=== PATIENT | female | born 1970 | race Caucasian/White ===

== ENCOUNTER → 2017-06-15 | Outpatient (CLI) | payer BC ==
--- NOTE | 2017-06-15 11:57 | WWHP ---
[facility] - HISTORY AND PHYSICAL DATE OF DICTATION: 06/15/2017 CHIEF COMPLAINT: The patient is here for her routine gynecologic exam and mammogram. HPI: This is a 47-year-old, G2, P2 with an LMP of 05/19/2017. The patient is without gynecologic complaints. Her is status post vasectomy. She states her periods are regular every 28 days. PAST MEDICAL HISTORY: Chronic hypertension. MEDICATIONS: Lisinopril 10 mg daily. ALLERGIES: PENICILLIN. PAST SURGICAL HISTORY: Unremarkable. 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 SOCIAL HISTORY: She denies tobacco and drug use and has about 12 alcohol containing drinks per week. She has been since 1995 and works at [email or web address]. FAMILY HISTORY: Unchanged from the 2015 H and P. REVIEW OF SYSTEMS: She has lost 36 pounds over the last year and this has been with diet and exercise. She denies respiratory, cardiac or GI problems. PHYSICAL EXAM: Blood pressure 145/84, height 5 feet 2 inches, weight 148 pounds. BMI 27. Temperature 98.5, pulse 58, this is a well-developed, well-nourished, white female, who is alert and oriented x3, in no acute distress. HEENT: Within normal limits. NECK: Supple without mass or thyromegaly. Chest and LUNGS: Clear to auscultation. HEART: Regular rate and rhythm. Breasts are without mass or discharge. Axillary exam is negative for adenopathy. Back negative for CVA tenderness. ABDOMEN: Soft, nontender, without palpable masses. Pelvic exam: Normal external genitalia. Cervix and vagina appear normal. There is no evidence of prolapse. The uterus is mid position nongravid size and nontender. There are no palpable adnexal masses or tenderness. Rectal exam is negative for mass or tenderness and is negative for occult blood. Extremities nontender. IMPRESSION: 47-year-old gynecologically healthy female whose is status post vasectomy. PLAN: 1. Pap smear was deferred since she had a normal 1 last year. 2. Self breast examination was discussed. 3. Mammogram will be done today. 4. Osteoporosis prevention was discussed. 5. She will return in 1 year. MMODL / IJN: [id number] / [facility]
--- NOTE | 2017-06-16 10:55 | MM ---
Reason for exam: screening (asymptomatic). Last mammogram was performed 1 year and 5 months ago. Physical Findings: A clinical breast exam by your physician is recommended on an annual basis and results should be correlated with mammographic findings. MG Screening Mammo w CAD Bilateral CC and MLO view(s) were taken. Prior study comparison: January 21, 2016, bilateral MG screening mammo w CAD. September 26, 2014, bilateral MG screening mammo w CAD. The breast tissue is heterogeneously dense. This may lower the sensitivity of mammography. Finding: There are typically benign round calcifications in the left breast. There is no discrete abnormality. ASSESSMENT: Benign, BI-RAD 2 RECOMMENDATION: Routine screening mammogram of both breasts in 1 year.
== END ==
LOC: WWCWWP 10:16
PROVIDERS: ATTEND Obstetrics & Gynecology
DX: Z12.31 Encounter for screening mammogram for malignant neoplasm of breast (principal)
CPT/HCPCS: 77067

== ENCOUNTER → 2019-05-02 | Outpatient (CLI) | payer BC ==
[2019-05-02 08:38] VITALS: BP 116/76; PULSE 62; RESP 18; TEMP 98.2
--- NOTE | 2019-05-02 09:08 | P.HPOB ---
History of Present Illness H&P Date: 05/02/19 Chief Complaint: The patient is here for her routine gynecologic exam and ma mmogram. This is a 49-year-old with an LMP of 04/11/2019. The patient is without gynecologic complaints. Menses are regular every month. Her is status post status post vasectomy. Review of Systems The patient has a net gain of 25 pound weight gain over the past 2 years. She has been actively trying to lose weight and using the keto diet and has lost 12 pounds over the past 2 months. She denies respiratory, cardiac, or GI problems. 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 History of Any Multi-Drug Resistant Organisms: None Reported Past Surgical History: No Surgical Hx Reported Past Psychological History: No Psychological Hx Reported Smoking Status: Never smoker Past Alcohol Use History: Daily (1 day) Past Drug Use History: None Reported Additional History: She has been since 1995 and works at [employer]. - Past Family History Mother Family Medical History: Diabetes Mellitus, Myocardial Infarction ([place]) Additional Family Medical History / Comment(s): Both grandmothers had diabetes. A maternal aunt had lung cancer. Medications and Allergies Home Medications Medication Instructions Recorded Confirmed Type Biotin 5,000 mcg PO DAILY 05/02/19 05/02/19 History Lisinopril [Zestril] 40 mg PO DAILY 05/02/19 05/02/19 History Allergies Allergy/AdvReac Type Severity Reaction Status Date / Time Penicillins AdvReac Rash/Hives Unverified 05/02/19 08:38 Exam Vital Signs Temp Pulse Resp BP Pulse Ox 05/02/19 08:34 98.2 F 62 18 116/76 100 Intake and Output 05/01/19 05/02/19 05/02/19 22:59 06:59 14:59 Other: Weight 78.471 kg Height 5 feet 2 inches, weight 173 pounds, BMI 31.6. This is a well-developed well-nourished white female who is alert and oriented times 3 in no acute distress. HEENT: Within normal limits. NECK: Supple without mass or thyromegaly. CHEST AND LUNGS: Clear to auscultation. HEART: Regular rate and rhythm. BREASTS: Are without mass or discharge. AXILLARY EXAM: Negative for adenopathy. BACK: Negative for CVA tenderness. ABDOMEN: Soft, nontender, without palpable masses. PELVIC EXAM: Normal external genitalia. Cervix and vagina appear normal. There is no unusual discharge. There is no evidence of prolapse. The uterus is midposition, nongravid size and nontender. There are no palpable adnexal masses or tenderness. RECTAL EXAM: negative for mass or tenderness and is negative for occult blood. EXTREMITIES: Nontender. IMPRESSION: 1. 49-year-old female whose is status post vasectomy with normal gynecologic exam. PLAN: 1. Pap smear was performed. 2. Self breast awareness was discussed with the patient. 3. Evening mammogram will be done today. 4. Osteoporosis prevention was discussed. I have stressed the importance of adequate calcium, vitamin D and regular exercise. Recommended amounts of calcium and vitamin D were also discussed. 5. She was advised to return in one year for her annual well woman exam.
--- NOTE | 2019-05-05 10:55 | MM ---
Reason for exam: screening (asymptomatic). Last mammogram was performed 1 year and 11 months ago. Physical Findings: A clinical breast exam by your physician is recommended on an annual basis and results should be correlated with mammographic findings. MG Screening Mammo w CAD Bilateral CC and MLO view(s) were taken. Prior study comparison: June 15, 2017, bilateral MG screening mammo w CAD. January 21, 2016, bilateral MG screening mammo w CAD. The breast tissue is heterogeneously dense. This may lower the sensitivity of mammography. No significant changes when compared with prior studies. ASSESSMENT: Benign, BI-RAD 2 RECOMMENDATION: Routine screening mammogram of both breasts in 1 year.
--- NOTE | 2019-05-09 14:02 | P.PN ---
Progress Note - Text Progress Note Date: 05/09/19 OUTPATIENT FOLLOW-UP NOTE TEST(S)/RESULTS: test results from 05/02/2019 include negative Pap smear and benign mammogram. METHOD OF NOTIFICATION: the patient was notified by phone. PATIENT COMMENTS: the patient is happy to hear these results. DIAGNOSIS: negative Pap smear and benign mammogram. DISCUSSION: PLAN: the patient is to return in one year for her annual well woman exam.
== END ==
LOC: WWCWWP 08:17
PROVIDERS: ATTEND Obstetrics & Gynecology
DX: Z12.31 Encounter for screening mammogram for malignant neoplasm of breast (principal)
CPT/HCPCS: 77067

== ENCOUNTER → 2020-08-21 | Outpatient (CLI) | payer BC ==
[2020-08-21 07:59] VITALS: BP 133/83; PULSE 71; RESP 18; TEMP 97.9
--- NOTE | 2020-08-21 08:35 | P.HPOB ---
History of Present Illness H&P Date: 08/21/20 Chief Complaint: The patient is here for her routine gynecologic exam and ma mmogram. This is a 50-year-old with an LMP of 08/05/2020. The patient is without gynecologic complaints and states her menstrual periods are regular every 28 days. Her is status post vasectomy. She has occasional hot flashes at night. Review of Systems The patient has gained 19 pounds over the last year. She denies respiratory, cardiac, or G.I. problems. 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 History of Any Multi-Drug Resistant Organisms: None Reported Past Surgical History: No Surgical Hx Reported Past Psychological History: No Psychological Hx Reported Smoking Status: Never smoker Past Alcohol Use History: Daily (Averaging 1 per day or 8 per week.) Past Drug Use History: None Reported Additional History: She has been since 1995 and works at [employer]. - Past Family History Mother Family Medical History: Diabetes Mellitus, Myocardial Infarction ([place]) Additional Family Medical History / Comment(s): Both grandmothers had diabetes. A maternal aunt had lung cancer. Medications and Allergies Home Medications Medication Instructions Recorded Confirmed Type lisinopriL [Zestril] 40 mg PO DAILY 05/02/19 08/21/20 History Allergies Allergy/AdvReac Type Severity Reaction Status Date / Time Penicillins AdvReac Rash/Hives Unverified 08/21/20 07:55 Exam Vital Signs Temp Pulse Resp BP Pulse Ox 08/21/20 07:57 97.9 F 71 18 133/83 100 Intake and Output 08/20/20 08/21/20 08/21/20 22:59 06:59 14:59 Other: Weight 87.09 kg Height 5 feet 3-1/2 inches, weight 192 pounds, BMI 33.5. This is a well-developed well-nourished white female who is alert and oriented times 3 in no acute distress. HEENT: Within normal limits. NECK: Supple without mass or thyromegaly. CHEST AND LUNGS: Clear to auscultation. HEART: Regular rate and rhythm. BREASTS: Are without mass or discharge. AXILLARY EXAM: Negative for adenopathy. BACK: Negative for CVA tenderness. ABDOMEN: Soft, nontender, without palpable masses. PELVIC EXAM: Normal external genitalia . Cervix and vagina appear normal. There is no unusual discharge. There is no evidence of prolapse. The uterus is midposition, nongravid size and nontender. There are no palpable adnexal masses or tenderness. RECTAL EXAM: negative for mass or tenderness and is negative for occult blood. EXTREMITIES: Nontender. IMPRESSION: 1. 50-year-old premenopausal female with normal gynecologic exam whose is status post vasectomy. 2. Weight gain PLAN: 1. Pap smear was deferred since she had a negative one on 05/02/2019. 2. Self breast awareness was discussed with the patient. 3. Screening mammogram will be done today. 4. Weight control was discussed with the patient. I have stressed the importance of good nutrition and regular exercise. We have also discussed the importance of eating regular meals throughout the day and consuming adequate amounts of fiber. 5. Osteoporosis prevention was discussed. I have stressed the importance of adequate calcium, vitamin D and regular exercise. Recommended amounts of calcium and vitamin D were also discussed. 6. She was advised to return in one year for her annual well woman exam.
--- NOTE | 2020-08-22 10:50 | MM ---
Reason for exam: screening (asymptomatic). Last mammogram was performed 1 year and 4 months ago. Physical Findings: A clinical breast exam by your physician is recommended on an annual basis and results should be correlated with mammographic findings. MG 3D Screening Mammo W/Cad Bilateral CC and MLO view(s) were taken. Prior study comparison: May 02, 2019, bilateral MG screening mammo w CAD. June 15, 2017, bilateral MG screening mammo w CAD. There are scattered fibroglandular densities. There are benign appearing round calcifications bilaterally. There is no discrete abnormality. ASSESSMENT: Benign, BI-RAD 2 RECOMMENDATION: Routine screening mammogram of both breasts in 1 year.
== END ==
LOC: WWCWWP 07:40
PROVIDERS: ATTEND Obstetrics & Gynecology
DX: Z01.419 Encounter for gynecological examination (general) (routine) without abnormal findings (principal); I10 Essential (primary) hypertension; R63.5 Abnormal weight gain; Z68.33 Body mass index [BMI] 33.0-33.9, adult; Z12.31 Encounter for screening mammogram for malignant neoplasm of breast
CPT/HCPCS: 77063; 77067

== ENCOUNTER → 2022-02-03 | Outpatient (CLI) | payer BC ==
[2022-02-03 07:57] VITALS: BP 163/94; PULSE 66; RESP 16; TEMP 98.6
--- NOTE | 2022-02-03 08:25 | P.HPOB ---
History of Present Illness H&P Date: 02/03/22 Chief Complaint: The patient is here for her routine gynecologic exam and ma mmogram. This is a 51-year-old with an LMP of 01/03/2022. The patient's is status post vasectomy. She is without gynecologic complaints. She states her menstrual periods are regular every month. She has occasional hot flashes. 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 Review of Systems The patient has gained 9 pounds over the last year. She denies respiratory, cardiac, or G.I. problems. 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 History of Any Multi-Drug Resistant Organisms: None Reported Past Surgical History: No Surgical Hx Reported Past Psychological History: No Psychological Hx Reported Smoking Status: Never smoker Past Alcohol Use History: Daily (Typically one per day.) Past Drug Use History: None Reported Additional History: She has been since 1995 and works for [employer]. - Past Family History Mother Family Medical History: Diabetes Mellitus, Myocardial Infarction ([place]) Additional Family Medical History / Comment(s): Both grandmothers had diabetes. A maternal aunt had lung cancer. Medications and Allergies Home Medications Medication Instructions Recorded Confirmed Type lisinopriL [Zestril] 40 mg PO DAILY 05/02/19 08/21/20 History Allergies Allergy/AdvReac Type Severity Reaction Status Date / Time Penicillins AdvReac Rash/Hives Unverified 02/03/22 07:49 Exam Vital Signs Temp Pulse Resp BP Pulse Ox 02/03/22 07:53 98.6 F 66 16 163/94 100 Intake and Output 02/02/22 02/03/22 02/03/22 22:59 06:59 14:59 Other: Weight 92.079 kg Height 5 feet 4 inches, weight 203 pounds, BMI 34.8. This is a well-developed well-nourished white female who is alert and oriented times 3 in no acute distress. HEENT: Within normal limits. NECK: Supple without mass or thyromegaly. CHEST AND LUNGS: Clear to auscultation. HEART: Regular rate and rhythm. BREASTS: Are without mass or discharge. AXILLARY EXAM: Negative for adenopathy. BACK: Negative for CVA tenderness. ABDOMEN: Soft, nontender, without palpable masses. PELVIC EXAM: Normal external genitalia. Cervix and vagina appear normal. There is no unusual discharge. There is no evidence of prolapse. The uterus is midpo sition, nongravid size and nontender. There are no palpable adnexal masses or tenderness. RECTAL EXAM: Rectovaginal exam is negative for mass or tenderness and is negative for occult blood. EXTREMITIES: Nontender. IMPRESSION: 1. 51-year-old premenopausal female with normal gynecologic exam, whose is status post vasectomy. 2. Elevated blood pressure. PLAN: 1. Pap smear cotest was performed. 2. Self breast awareness was discussed with the patient. We have also discussed symptoms associated with inflammatory breast cancer. 3. Screening mammogram will be done today. 4. We have discussed her elevated blood pressure. I have recommended that she try to lose weight. I have stressed the importance of good nutrition and regular exercise. We have discussed the option of weight loss programs such as Weight Watchers. I recommended that she check her own blood pressure on a regular basis and follow up with her primary care physician for blood pressure elevations. 5. Osteoporosis prevention was discussed. I have stressed the importance of adequate calcium, vitamin D and regular exercise. Recommended amounts of calcium and vitamin D were also discussed. 6. Colorectal cancer screening was discussed. She states she has had done a Cologuard test this year through her PCP. She understands this is not for high- risk patients and should be done every 3 years. 7. She has completed her Covid vaccination series. She has not received any boosters since her second Covid vaccination was just recently. 8. She was advised to return in one year for her annual well woman exam.
--- NOTE | 2022-02-04 09:15 | MM ---
Reason for Exam: Screening (asymptomatic). Last mammogram was performed 1 year(s) and 5 month(s) ago. Patient History: Menarche at age 14. First Full-Term at age 29. Patient has history of breast feeding. Risk Values: Alisa 5 year model risk: 1.1%. NCI Lifetime model risk: 9.9%. Prior Study Comparison: 01/21/2016 Bilateral Screening Mammogram, [facility]. 06/15/2017 Bilateral Screening Mammogram, [facility]. 05/02/2019 Bilateral Screening Mammogram, [facility]. 08/21/2020 Bilateral Screening Mammogram, [facility]. Tissue Density: The breast tissue is heterogeneously dense. This may lower the sensitivity of mammography. Findings: Analyzed By CAD. A few small scattered benign-appearing round calcifications are redemonstrated throughout the bilateral breasts. Benign appearing bilateral axillary lymph nodes are redemonstrated. There is no suspicious group of microcalcifications or new suspicious mass in either breast. Overall Assessment: Benign, BI-RAD 2 Management: Screening Mammogram of both breasts in 1 year. A clinical breast exam by your physician is recommended on an annual basis and results should be correlated with mammographic findings. Electronically signed and approved by: Cory Mcbride M.D.
== END ==
LOC: WWCWWP 07:42
PROVIDERS: ATTEND Obstetrics & Gynecology
DX: Z12.31 Encounter for screening mammogram for malignant neoplasm of breast (principal); Z01.419 Encounter for gynecological examination (general) (routine) without abnormal findings; I10 Essential (primary) hypertension; Z79.899 Other long term (current) drug therapy; Z88.0 Allergy status to penicillin
CPT/HCPCS: 77063; 77067

== ENCOUNTER → 2024-01-17 | Outpatient (CLI) | payer BC ==
--- NOTE | 2024-01-18 14:07 | MM ---
Reason for Exam: Screening (asymptomatic). Last mammogram was performed 2 year(s) and 0 month(s) ago. Patient History: Menarche at age 14. First Full-Term at age 29. Patient has history of breast feeding. Risk Values: Alisa 5 year model risk: 1.2%. NCI Lifetime model risk: 9.6%. Prior Study Comparison: 05/02/2019 Bilateral Screening Mammogram, [facility]. 08/21/2020 Bilateral Screening Mammogram, [facility]. 02/03/2022 Bilateral MG 3D screening mammo w/cad, [facility]. Tissue Density: The breasts are heterogeneously dense, which may obscure small masses. Findings: Analyzed By CAD. There is no suspicious group of microcalcifications or new suspicious mass in either breast. Overall Assessment: Negative, BI-RAD 1 Management: Screening Mammogram of both breasts in 1 year. . Patient should continue monthly self-breast exams. A clinical breast exam by your physician is recommended on an annual basis. This exam should not preclude additional follow-up of suspicious palpable abnormalities. Note on Alisa scores and lifetime risk: 1. A Alisa score greater than 3% is considered moderate risk. If this is the case, consider specialist referral to assess eligibility for a risk reducing agent. 2. If overall lifetime risk for the development of breast cancer is 20% or higher, the patient may qualify for future screening with alternating mammogram and breast MRI. Electronically signed and approved by: Rg Horton M.D. Radiologis
== END | disposition home or self-care (01) ==
LOC: RADMAMWWP 16:19
PROVIDERS: ATTEND Family Medicine
DX: Z12.39 Encounter for other screening for malignant neoplasm of breast
CPT/HCPCS: 77063; 77067